=== PATIENT | female | born 1970 | race Caucasian/White ===

== ENCOUNTER 2018-08-31 01:13 | Emergency (ER) | END 2018-08-31 02:45 | disposition home or self-care (01) ==

== ENCOUNTER 2019-01-07 05:52 | Emergency (ER) | payer SELFPAY ==
[~2019-01-07] VITALS: Wt 77.4 kg
[~2019-01-07 05:52] MED LIST: BEN25 PO; CLOT30CR24 TOP; GLYC113C3 TOP; HC30CR25 TOP
--- NOTE | 2019-01-07 07:07 | ERD ---
ER Documentation Chief Complaint Chief Complaint PT TOOK 2 ULTRAM INSTAED OF 1. FEELS DIZZY AND C/O EPIGASTRIC PAIN. HPI 48-year-old female history of gastric bypass surgery 4 years ago accidentally took 2 Ultram 50mg tabs today. She reaches into the cabinet and thought she was taking Motrin but then discovered the pills were Ultram which was prescribed to her . Presents to the ED complaining of lightheadedness, mild, burning, nonradiating epigastric pain but no nausea, vomiting, diarrhea or hematemesis. Denies chest pain or palpitations. No shortness of breath or cough. No fevers or chills. Denies depression, anxiety. No suicidal or homicidal ideations. ROS All systems reviewed and are negative except as per history of present illness. Medications Home Meds Active Scripts Clotrimazole* (Clotrimazole* AF) 1% - 30 Gm Cream.gm., 1 APPLIC TOP BID for 7 Days, #1 TUB Prov:AUGUSTA BOLAND PA-C 08/31/18 Diphenhydramine Hcl* (Benadryl*) 25 Mg Cap, 25 MG PO Q6, #30 CAP Prov:AUGUSTA BOLAND PA-C 08/31/18 Eucerin* (Eucerin*) 113 Gm Cream..g., 1 APPLIC TOP BID, #1 TUB Prov:AUGUSTA BOLAND PA-C 08/31/18 Hydrocortisone* Topical (Hydrocortisone* Topical) 2.5%-28.3 Gm Cream..g., 1 APPLIC TOP BID, #1 TUB Prov:AUGUSTA BOLAND PA-C 08/31/18 Allergies Allergies: Coded Allergies: No Known Allergy (Unverified , 08/31/18) PMhx/Soc Hx Alcohol Use: No Hx Substance Use: No Hx Tobacco Use: No FmHx No family history relevant to presenting complaint Physical Exam Vitals Vital Signs Date Temp Pulse Resp B/P (MAP) Pulse Ox O2 O2 Flow FiO2 Time Delivery Rate 01/07/19 88 18 98/61 (73) 99 Room Air 10:17 01/07/19 97.6 69 18 95/57 (70) 98 05:55 Physical Exam Const: No acute distress Head: Atraumatic Eyes: Normal Conjunctiva ENT: Normal External Ears, Nose and Mouth. Neck: Full range of motion. No meningismus. Resp: Clear to auscultation bilaterally Cardio: Regular rate and rhythm, no murmurs Abd: Soft, non tender, non distended. Normal bowel sounds Skin: No petechiae or rashes Back: No midline or flank tenderness Ext: No cyanosis, or edema Neur: Awake and alert Psych: Normal Mood and Affect Result Diagram: 01/07/19 0730 01/07/19 0730 Results 24 hrs Laboratory Tests Test 01/07/19 07:30 White Blood Count 11.1 10^3/ul Red Blood Count 3.91 10^6/ul Hemoglobin 11.5 g/dl Hematocrit 35.4 % Mean Corpuscular Volume 90.5 fl Mean Corpuscular Hemoglobin 29.4 pg Mean Corpuscular Hemoglobin Concent 32.5 g/dl Red Cell Distribution Width 13.5 % Platelet Count 285 10^3/UL Mean Platelet Volume 9.2 fl Immature Granulocytes % 0.600 % Neutrophils % 82.0 % Lymphocytes % 9.7 % Monocytes % 6.1 % Eosinophils % 1.1 % Basophils % 0.5 % Nucleated Red Blood Cells % 0.0 /100WBC Immature Granulocytes # 0.070 10^3/ul Neutrophils # 9.1 10^3/ul Lymphocytes # 1.1 10^3/ul Monocytes # 0.7 10^3/ul Eosinophils # 0.1 10^3/ul Basophils # 0.1 10^3/ul Nucleated Red Blood Cells # 0.0 10^3/ul Sodium Level 141 mmol/L Potassium Level 4.2 mmol/L Chloride Level 104 mmol/L Carbon Dioxide Level 28 mmol/L Anion Gap 9 Blood Urea Nitrogen 18 mg/dl Creatinine 0.47 mg/dl Est Glomerular Filtrat Rate mL/min > 60 mL/min Glucose Level 110 mg/dl Calcium Level 9.6 mg/dl Total Bilirubin 0.1 mg/dl Direct Bilirubin 0.00 mg/dl Indirect Bilirubin 0.1 mg/dl Aspartate Amino Transf (AST/SGOT) 90 IU/L Alanine Aminotransferase (ALT/SGPT) 45 IU/L Alkaline Phosphatase 57 IU/L Total Protein 7.0 g/dl Albumin 4.1 g/dl Globulin 2.90 g/dl Albumin/Globulin Ratio 1.41 Lipase 125 U/L Current Medications Medications Dose Sig/Prince Start Time Status Last (Trade) Ordered Route PRN Stop Time Admin Dose Reason Admin Sodium 1,000 ml @ Q1H STAT 01/07/19 DC 01/07/19 Chloride 1,000 mls/hr IV 07:19 07:28 01/07/19 08:18 Famotidine 20 mg ONCE STAT 01/07/19 DC 01/07/19 (Pepcid Iv) IV 07:19 07:44 01/07/19 07:21 40 ml ONCE STAT 01/07/19 DC 01/07/19 Miscellaneous PO 07:19 07:45 Medication 01/07/19 07:21 (Gi Cocktail (2)) Lactated 1,000 ml @ Q1H STAT 01/07/19 DC 01/07/19 Ringer's 1,000 mls/hr IV 10:23 10:30 01/07/19 11:22 Ondansetron 4 mg ONCE STAT 01/07/19 DC 01/07/19 HCl (Zofran IV 12:28 12:42 Inj) 01/07/19 12:29 Procedures/MDM DOCUMENTS REVIEWED: ED nurse, prior records Time: 13:45. Well. Abdomen soft nontender. Alert and oriented. Observation Note: Time: 4 hours Family Hx: No Hypertension Evaluation: Multiple exams showed improving symptoms and no evidence of respiratory depression [employer]-year-old female history of gastric bypass surgery 4 years ago accidentally took 2 Ultram 50mg tabs this morning. CBC reveals borderline anemia and leukocytosis but no thrombocytopenia. Chemistry unremarkable for electrolyte abnormalities or renal insufficiency. Patient with chronic, epigastric pain due to gastritis after her gastric bypass surgery improved with antacids and H2 blockers. Observed in the ED for over 4 hours. Abdominal exam is benign without significant tenderness, rebound, guarding or signs of peritonitis hence advanced imaging is not indicated. No respiratory depression or hypoxia. No hemodynamic instability. Ingestion was accidental. No suicidal ideations or depression. Stable for discharge with precautionary instructions and outpatient follow-up as counseled. Counseled patient and family regarding diagnostic workup, diagnosis and need for followup. Understands to return to ED if symptoms recur, worsen or any other concerns. Departure Diagnosis: Primary Impression: Accidental overdose Encounter type: initial encounter Qualified Codes: T50.901A - Poisoning by unspecified drugs, medicaments and biological substances, accidental (unintentional), initial encounter Additional Impressions: Gastritis Gastritis type: unspecified gastritis Chronicity: unspecified Gastritis bleeding: without bleeding Qualified Codes: K29.70 - Gastritis, unspecified, without bleeding History of gastric bypass Condition: ERNESTO Alicea MD Jan 07, 2019 07:07
[2019-01-07] MEDS ORDERED: SOD CHLORIDE 0.9% 1,000 ML IV STA (07:19)
[2019-01-07] MEDS ORDERED: FAMOTIDINE 20 MG INJ IV STA (07:19)
[2019-01-07] MEDS ORDERED: LIDOCAINE/MYLANTA 40 ML BTL PO STA (07:19)
[2019-01-07 10:17] VITALS: BP 98/61; PULSE 88; RESP 18
[2019-01-07] MEDS ORDERED: LACTATED RINGER'S 1,000 ML IV STA (10:23)
[2019-01-07] MEDS ORDERED: ONDANSETRON 4 MG INJ IV STA (12:28)
== END 2019-01-07 14:14 | disposition home or self-care (01) ==
LOC: E/R 05:52
DX: T40.4X1A Poisoning by other synthetic narcotics, accidental (unintentional), initial encounter (principal); K29.70 Gastritis, unspecified, without bleeding; Z98.84 Bariatric surgery status
CPT/HCPCS: 36415; 80053; 83690; 85025; 96374; 96375; 99284; J2405; J7030; J7120